=== PATIENT | female | born 1990 | race Caucasian/White ===

== ENCOUNTER 2016-11-09 10:04 | Emergency (ER) | payer OTHER ==
[2016-11-09 10:21] VITALS: BP 130/88; PULSE 74; RESP 18; TEMP 97.9; O2SAT 99
[2016-11-09] MEDS ORDERED: SUMATRIPTAN SUCCINATE 6 MG/0.5 ML SOL SC ONE ×2 (10:47→10:57)
[2016-11-09] MEDS ORDERED: ONDANSETRON 4 MG ODT BU ONE (10:47)
[2016-11-09] MEDS ORDERED: ONDANSETRON 4 MG ODT ONE (10:57)
[2016-11-09] MEDS ORDERED: PROMETHAZINE HYDROCHLORIDE 25 MG/ML SOL IM ONE (11:15)
[2016-11-09] MEDS ORDERED: APAP/HYDROCODONE 325/5 TAB PO ONE (11:15)
[2016-11-09] MEDS ORDERED: KETOROLAC TROMETHAMINE 30 MG/ML SOL IM ONE (11:27)
[2016-11-09] MEDS ORDERED: KETOROLAC TROMETHAMINE 30 MG/ML SOL ONE (11:43)
== END 2016-11-09 12:25 | disposition home or self-care (01) | DRG 103 ==
LOC: ED 10:04
DX: G43.909 Migraine, unspecified, not intractable, without status migrainosus (principal)
CPT/HCPCS: 99283; J1885; J3030

== ENCOUNTER 2016-11-25 20:09 | Emergency (ER) | payer OTHER ==
[2016-11-25 20:29] VITALS: RESP 20
[2016-11-25 21:06] VITALS: BP 139/80; PULSE 86; TEMP 98; O2SAT 98
== END 2016-11-25 21:25 | disposition home or self-care (01) | DRG 313 ==
LOC: ED 20:09
DX: R07.9 Chest pain, unspecified (principal); V48.6XXA Car passenger injured in noncollision transport accident in traffic accident, initial encounter; Y92.411 Interstate highway as the place of occurrence of the external cause
CPT/HCPCS: 71020; 99283

== ENCOUNTER 2016-12-11 21:50 | Emergency (ER) | payer OTHER ==
[2016-12-11 22:16] VITALS: RESP 16; TEMP 98.2
[2016-12-12 00:03] VITALS: BP 125/72; PULSE 74; O2SAT 100
== END 2016-12-11 23:45 | disposition home or self-care (01) | DRG 556 ==
LOC: ED 21:50
DX: M25.512 Pain in left shoulder (principal)
CPT/HCPCS: 73030; 73070; 84703; 93005; 99282; 99283

== ENCOUNTER 2017-01-16 16:07 | Emergency (ER) | payer OTHER ==
[2017-01-16 16:25] VITALS: TEMP 97
[2017-01-16 16:53] LABS: BASOPHILS % (AUTO) 0 % (0-3); EOSINOPHILS % (AUTO) 1 % (0-9); HEMATOCRIT 40 % (35-47); MEAN CORPUSCULAR HGB CONC 33.4 gm/dl (32.0-36.0); MEAN CORPUSCULAR VOLUME 86 fL (81-99); MONOCYTES % (AUTO) 7.7 % (0-12); NEUTROPHILS % (AUTO) 75.1 % (37-80)
[2017-01-16 16:56] LABS: APPEARANCE,URINE Clear; BILIRUBIN,URINE 1+ (NEGATIVE); COLOR,URINE Dark yellow; GLUCOSE, URINE (UA) NEGATIVE (NEGATIVE); KETONES,URINE 1+ (NEGATIVE); LEUKOCYTE ESTERASE ,URINE NEGATIVE (NEGATIVE); NITRATE,URINE NEGATIVE (NEGATIVE); OCCULT BLOOD,URINE 3+ (NEG-TRACE); UROBILINOGEN,URINE 0.2 (0.2-1.0 EU)
[2017-01-16 17:00] LABS: CALCIUM 8.8 mg/dl (8.5-10.1); POTASSIUM 3.8 mMol/L (3.5-5.1)
[2017-01-16 17:10] LABS: ICTOTEST,URINE NEGATIVE (NEGATIVE); WBC,URINE 0-2 (0-5AV/HPF)
[2017-01-16 17:37] VITALS: RESP 18
[2017-01-16 17:38] VITALS: PULSE 80; O2SAT 99
[2017-01-16 19:39] VITALS: BP 123/76
== END 2017-01-16 18:28 | disposition home or self-care (01) | DRG 305 ==
LOC: ED 16:07
DX: I10 Essential (primary) hypertension (principal); E66.9 Obesity, unspecified
CPT/HCPCS: 36415; 80048; 81001; 84443; 85025; 93005; 99282; 99284

== ENCOUNTER 2017-05-17 14:11 | Emergency (ER) | payer MEDICAID, OTHER ==
[2017-05-17 14:12] VITALS: O2SAT 100
[2017-05-17 14:34] VITALS: RESP 16; TEMP 97.8
[2017-05-17 15:22] VITALS: BP 134/86; PULSE 75
== END 2017-05-17 15:19 | disposition home or self-care (01) | DRG 153 ==
LOC: ED 14:11
DX: J06.9 Acute upper respiratory infection, unspecified (principal)
CPT/HCPCS: 87430; 99282

== ENCOUNTER 2017-06-08 10:39 | Emergency (ER) | payer OTHER ==
[2017-06-08 10:39] VITALS: O2SAT 100
[2017-06-08 11:40] LABS: BASOPHILS % (AUTO) 0 % (0-3); EOSINOPHILS % (AUTO) 2 % (0-9); HEMATOCRIT 34 % (35-47); MEAN CORPUSCULAR HGB CONC 31.3 gm/dl (32.0-36.0); MONOCYTES % (AUTO) 6.7 % (0-12); NEUTROPHILS % (AUTO) 73.8 % (37-80)
[2017-06-08 11:49] LABS: CALCIUM 8.3 mg/dl (8.5-10.1)
[2017-06-08 11:59] LABS: APPEARANCE,URINE Clear; BILIRUBIN,URINE NEGATIVE (NEGATIVE); COLOR,URINE Yellow; GLUCOSE, URINE (UA) NEGATIVE (NEGATIVE); KETONES,URINE NEGATIVE (NEGATIVE); LEUKOCYTE ESTERASE ,URINE NEGATIVE (NEGATIVE); NITRATE,URINE NEGATIVE (NEGATIVE); OCCULT BLOOD,URINE 2+ (NEG-TRACE); UROBILINOGEN,URINE 0.2 (0.2-1.0 EU)
[2017-06-08 12:03] LABS: MEAN CORPUSCULAR VOLUME 75 fL (81-99)
[2017-06-08 12:07] LABS: ANISOCYTOSIS SLIGHT AMT
[2017-06-08 12:08] LABS: OVALOCYTES PRESENT
[2017-06-08 12:17] LABS: RBC,URINE 20-25 (0-3AV/HPF); WBC,URINE 0-2 (0-5AV/HPF)
[2017-06-08 12:23] VITALS: BP 130/82; PULSE 68; RESP 20; TEMP 98.2
== END 2017-06-08 12:20 | disposition home or self-care (01) | DRG 195 ==
LOC: ED 10:39
DX: J18.9 Pneumonia, unspecified organism (principal)
CPT/HCPCS: 36415; 71020; 80048; 81001; 84703; 85025; 99282

== ENCOUNTER 2017-06-23 22:05 | Emergency (ER) | payer OTHER ==
[2017-06-23 22:05] VITALS: O2SAT 100
[2017-06-23 22:12] VITALS: RESP 20
[2017-06-23] MEDS ORDERED: APAP/HYDROCODONE 325/5 TAB PO ONE (22:42)
[2017-06-23] MEDS ORDERED: APAP/HYDROCODONE 325/5 TAB ONE (22:45)
[2017-06-23 23:18] VITALS: BP 128/81; PULSE 65; TEMP 97.3
== END 2017-06-23 23:17 | disposition home or self-care (01) | DRG 761 ==
LOC: ED 22:05
DX: N93.9 Abnormal uterine and vaginal bleeding, unspecified (principal)
CPT/HCPCS: 85018; 99282

== ENCOUNTER 2017-07-01 06:52 | Emergency (ER) | payer OTHER ==
[2017-07-01 07:04] VITALS: RESP 18; TEMP 98.4
[2017-07-01 07:18] VITALS: PULSE 78
[2017-07-01 07:48] VITALS: BP 120/81; O2SAT 98
== END 2017-07-01 07:45 | disposition home or self-care (01) | DRG 305 ==
LOC: ED 06:52
DX: I10 Essential (primary) hypertension (principal)
CPT/HCPCS: 99282

== ENCOUNTER 2017-12-04 20:35 | Emergency (ER) | payer OTHER ==
[2017-12-04 21:31] VITALS: BP 132/95; PULSE 88; RESP 16; TEMP 97.4; O2SAT 98
== END 2017-12-04 21:05 | disposition home or self-care (01) | DRG 607 ==
LOC: ED 20:35
DX: L91.8 Other hypertrophic disorders of the skin (principal)
CPT/HCPCS: 99282

== ENCOUNTER 2017-12-14 06:28 | Emergency (ER) | payer MEDICAID, OTHER ==
[2017-12-14 06:33] VITALS: BP 131/91; PULSE 89; RESP 18; TEMP 97.6; O2SAT 99
[2017-12-14] MEDS ORDERED: KETOROLAC TROMETHAMINE 30 MG/ML SOL IM ONE (06:43)
[2017-12-14] MEDS ORDERED: KETOROLAC TROMETHAMINE 30 MG/ML SOL ONE (06:51)
[2017-12-14] MEDS ORDERED: LIDOCAINE 2% W/ EPI MPF 20 ML SOL INFIL ONE (07:33)
[2017-12-14] MEDS ORDERED: BUPIVACAINE HCL 0.5% MPF 10 ML SOL INFIL ONE (07:33)
[2017-12-14] MEDS ORDERED: BUPIVACAINE HCL 0.5% MPF 10 ML SOL ONE (07:47)
[2017-12-14] MEDS ORDERED: LIDOCAINE 2% W/ EPI MPF 20 ML SOL ONE (07:48)
== END 2017-12-14 08:14 | disposition home or self-care (01) | DRG 159 ==
LOC: ED 06:28
DX: K02.9 Dental caries, unspecified (principal)
CPT/HCPCS: 96372; 99282; J1885

== ENCOUNTER 2018-03-12 18:06 | Emergency (ER) | payer OTHER ==
[2018-03-12 18:22] VITALS: RESP 18; TEMP 98.2
[2018-03-12 18:45] VITALS: BP 139/99; PULSE 74; O2SAT 100
== END 2018-03-12 18:45 | disposition home or self-care (01) | DRG 935 ==
LOC: ED 18:06
DX: T23.001A Burn of unspecified degree of right hand, unspecified site, initial encounter (principal)
CPT/HCPCS: 99282

== ENCOUNTER 2018-05-23 19:10 | Emergency (ER) | payer OTHER ==
[2018-05-23 20:47] VITALS: RESP 18; TEMP 97
[2018-05-23 22:59] VITALS: BP 124/77; PULSE 78; O2SAT 98
== END 2018-05-23 22:20 | disposition home or self-care (01) ==
LOC: ED 19:10
DX: S83.92XA Sprain of unspecified site of left knee, initial encounter (principal)
CPT/HCPCS: 73560; 99282; 99283

== ENCOUNTER 2018-07-31 19:47 | Emergency (ER) | payer OTHER ==
[2018-07-31 20:09] VITALS: RESP 16; TEMP 96.4
[2018-07-31 20:42] VITALS: BP 136/85; PULSE 70; O2SAT 100
== END 2018-07-31 20:40 | disposition home or self-care (01) | DRG 607 ==
LOC: ED 19:47
DX: B35.3 Tinea pedis (principal); L30.9 Dermatitis, unspecified
CPT/HCPCS: 99282

== ENCOUNTER 2018-09-08 22:46 | Emergency (ER) | payer OTHER ==
[2018-09-08 23:01] VITALS: RESP 16; TEMP 96
[2018-09-08] MEDS: CYCLOBENZAPRINE 10 MG TAB PO ONE (23:46)
[2018-09-08] MEDS ORDERED: CYCLOBENZAPRINE 10 MG TAB ONE (23:48)
[2018-09-09 00:19] VITALS: BP 127/86; PULSE 72; O2SAT 98
== END 2018-09-09 00:16 | disposition home or self-care (01) | DRG 556 ==
LOC: ED 22:46
DX: M79.605 Pain in left leg (principal)
CPT/HCPCS: 99282; A9270-GY